=== PATIENT | female | born 1990 | race American Indian/Alaskan Native ===

== ENCOUNTER 2017-09-13 13:33 | Emergency (ER) | payer MEDICAID, OTHER ==
[2017-09-13 14:00] VITALS: BP 100/53
[2017-09-13 14:33] LABS: Basophils % (Auto) 0.4 % (0.0-1.8); Eosinophils % (Auto) 0.1 % (0.0-4.3); Hematocrit 32.1 % (30.3-42.9); Hemoglobin 10.6 gm/dl (10.1-14.3); Mean Corpuscular HGB Conc 33 % (30-34); Mean Corpuscular Hemoglobin 27 pg (28-32); Mean Corpuscular Volume 82 fl (79-97); Platelet Count 225 K/mm3 (140-440); Red Blood Count 3.93 M/mm3 (3.65-5.03); Red Cell Distribution Width 19.1 % (13.2-15.2); White Blood Count 8.1 K/mm3 (4.5-11.0)
[2017-09-13 14:38] LABS: Anion Gap 16 mmol/L; BUN/Creatinine Ratio 17; Blood Urea Nitrogen 5 mg/dL (7-17); Calcium 8.7 mg/dL (8.4-10.2); Carbon Dioxide 24 mmol/L (22-30); Chloride 98.8 mmol/L (98-107); Glucose 85 mg/dL (65-100); Potassium 3.6 mmol/L (3.6-5.0); Sodium 135 mmol/L (137-145)
== END 2017-09-13 22:20 | disposition left against medical advice (07) ==
LOC: ED 13:33
DX: R11.2 Nausea with vomiting, unspecified (principal); Z53.21 Procedure and treatment not carried out due to patient leaving prior to being seen by health care provider
CPT/HCPCS: 36415; 80048; 84702; 85025

== ENCOUNTER 2018-01-14 05:29 | Outpatient (CLI) | payer MEDICAID ==
[2018-01-14 05:47] VITALS: BP 100/59
[2018-01-14] MEDS ORDERED: NORMOSOL-R PH 7.4 1,000 ML IV SCH (06:05)
[2018-01-14] MEDS ORDERED: BRETHINE SUB-Q ONE (06:08)
[2018-01-14] MEDS ORDERED: BRETHINE ONE (06:13)
== END 2018-01-14 07:15 | disposition home or self-care (01) ==
LOC: TRG 05:29
PROVIDERS: ATTEND Obstetrics & Gynecology
DX: O26.892 Other specified pregnancy related conditions, second trimester (principal); R10.9 Unspecified abdominal pain; Z3A.27 27 weeks gestation of pregnancy
CPT/HCPCS: 59025; 96360; 96372; J3105

== ENCOUNTER 2018-01-20 15:29 | Outpatient (CLI) | payer MEDICAID | END 2018-01-20 15:30 | disposition home or self-care (01) | LOC: LAB 15:29 | PROVIDERS: ATTEND Midwife | DX: O36.0130 Maternal care for anti-D [Rh] antibodies, third trimester, not applicable or unspecified (principal); Z3A.28 28 weeks gestation of pregnancy | CPT/HCPCS: 86850; 86900; 86901; J2790 ==

== ENCOUNTER 2018-01-20 17:02 | Outpatient (CLI) | payer MEDICAID ==
[2018-01-20] MEDS ORDERED: LACTATED RINGERS 500 ML IV ONE (18:06)
== END 2018-01-20 18:09 | disposition home or self-care (01) ==
LOC: TRG 17:02
PROVIDERS: ATTEND Obstetrics & Gynecology
DX: O36.0130 Maternal care for anti-D [Rh] antibodies, third trimester, not applicable or unspecified (principal); Z3A.28 28 weeks gestation of pregnancy
CPT/HCPCS: 96372

== ENCOUNTER 2018-02-07 19:49 | Outpatient (CLI) | payer MEDICAID ==
[2018-02-07 20:53] VITALS: BP 114/57
[2018-02-07] MEDS ORDERED: LACTATED RINGERS 1,000 ML ONE (21:33)
[2018-02-07] MEDS ORDERED: TYLENOL PO ONE (22:03)
[2018-02-07 23:06] LABS: Hematocrit 24.6 % (30.3-42.9); Mean Corpuscular HGB Conc 32 % (30-34); Mean Corpuscular Hemoglobin 26 pg (28-32); Mean Corpuscular Volume 81 fl (79-97); Platelet Count 201 K/mm3 (140-440); Red Blood Count 3.06 M/mm3 (3.65-5.03); Red Cell Distribution Width 15.1 % (13.2-15.2)
[2018-02-08] MEDS ORDERED: BRETHINE SUB-Q ONE (00:24)
[2018-02-08] MEDS ORDERED: LACTATED RINGERS 500 ML IV ONE (03:09)
== END 2018-02-08 01:30 | disposition home or self-care (01) ==
LOC: TRG 19:49
PROVIDERS: ATTEND Obstetrics & Gynecology
DX: O26.893 Other specified pregnancy related conditions, third trimester (principal); R52 Pain, unspecified; Z3A.31 31 weeks gestation of pregnancy
CPT/HCPCS: 36415; 59025; 85027; 87116; 87400; 87430; 96360; J3105; J7120

== ENCOUNTER 2022-03-23 02:59 | Emergency (ER) | payer MEDICAID, OTHER ==
[2022-03-23] MEDS ORDERED: ACETAMINOPHEN 325 MG/10.15 ML ORAL LIQD UNIT DOSE PO ONE (03:58)
[2022-03-23] MEDS ORDERED: IBUPROFEN ORAL LIQD 100 MG/5 ML ORAL.LIQD PO ONE (03:58)
[2022-03-23] MEDS ORDERED: prednisoLONE SOD PHOSPHATE 15 MG/5 ML ORAL LIQD PO ONE (03:59)
[2022-03-23] MEDS ORDERED: IPRATROPIUM/ALBUTEROL SULFATE 3 ML AMPUL.NEB IH ONE (03:59)
--- NOTE | 2022-03-23 04:13 | Emergency Department Report ---
ED General Adult HPI - General Chief complaint: Pain General Stated complaint: WEAK/COLD & HOT/ACHES Source: patient Mode of arrival: Ambulatory Limitations: No Limitations - History of Present Illness Initial comments: Patient is a 32-year-old -Tongan female with no past medical history presents to the ED with complaint of acute onset persistent nasal and sinus congestion, frontal sinus pressure, sore throat, diffuse body aches and pains, persistent dry cough with wheezing and shortness of breath with lack of appetite for for 2 days. Patient states that her children have had similar symptoms in the last 1 week. Patient denies dizziness, syncope, chest pain, nausea and vomiting, diarrhea, abdominal pain, change in vision, hearing loss, hemoptysis or back pain MD Complaint: Nasal and sinus congestion, cough, headache, diffuse body aches -: Sudden, days(s) (2) Location: head, chest Radiation: non-radiation Severity scale (0 -10): 7 Quality: aching, sharp Consistency: constant Improves with: none Worsens with: none Associated Symptoms: denies other symptoms, cough, fever/chills, headaches, loss of appetite, malaise. denies: confusion, chest pain, diaphoresis, nausea/vomiting, rash, seizure, shortness of breath, syncope, weakness, other Treatments Prior to Arrival: none - Related Data Home Medications Medication Instructions Recorded Confirmed Last Taken Vit-Fe Fumar-FA [ 1 tab PO QDAY 10/28/15 03/18/18 03/18/18 Vitamin] Ferrous Sulfate [Feosol 325 MG tab] 325 mg PO TID 03/18/18 03/18/18 03/18/18 Previous Rx's Medication Instructions Recorded Last Taken Type Ferrous Sulfate [Feosol 325 MG tab] 325 mg PO BID #60 tablet 03/21/18 Unknown Rx HYDROcodone/APAP 5-325 [[place] 1 each PO Q6HR PRN #20 tablet 03/21/18 Unknown Rx 5/325] Ibuprofen [Motrin] 800 mg PO Q8HR PRN #30 tablet 03/21/18 Unknown Rx Azithromycin [Zithromax Z-LION] 250 mg PO DAILY #6 tab 03/23/22 Unknown Rx Benzonatate [Tessalon Perles] 100 mg PO Q8HR #30 cap 03/23/22 Unknown Rx Cetirizine HCl [Zyrtec 10mg tab] 10 mg PO DAILY #30 tab 03/23/22 Unknown Rx Ibuprofen [Motrin] 600 mg PO Q8H PRN #30 tablet 03/23/22 Unknown Rx methylPREDNISolone [Medrol 4MG 4 mg PO DAILY #21 tab 03/23/22 Unknown Rx DOSEPAK (21 tabs)] Allergies Allergy/AdvReac Type Severity Reaction Status Date / Time No Known Allergies Allergy Verified 10/28/15 16:45 ED Review of Systems ROS: Stated complaint: WEAK/COLD & HOT/ACHES Other details as noted in HPI Constitutional: chills, fever, malaise, weakness Eyes: denies: eye pain, eye discharge, vision change ENT: throat pain, congestion. denies: ear pain Respiratory: cough, shortness of breath, wheezing Cardiovascular: denies: chest pain, palpitations Endocrine: no symptoms reported Gastrointestinal: denies: abdominal pain, nausea, vomiting, diarrhea Genitourinary: denies: urgency, dysuria, discharge Musculoskeletal: arthralgia, myalgia. denies: back pain, joint swelling Skin: denies: rash, lesions Neurological: headache. denies: weakness, paresthesias Psychiatric: denies: anxiety, depression Hematological/Lymphatic: denies: easy bleeding, easy bruising ED Past Medical Hx - Past Medical History Hx Hypertension: No Hx Congestive Heart Failure: No Hx Diabetes: No Hx Deep Vein Thrombosis: No Hx Renal Disease: No Hx Sickle Cell Disease: No Hx Seizures: No Hx Asthma: No Hx COPD: No Hx HIV: No - Social History Smoking Status: Never Smoker - Medications Home Medications: Home Medications Medication Instructions Recorded Confirmed Last Taken Type Vit-Fe Fumar-FA [ 1 tab PO QDAY 10/28/15 03/18/18 03/18/18 History Vitamin] Ferrous Sulfate [Feosol 325 MG tab] 325 mg PO TID 03/18/18 03/18/18 03/18/18 History Ferrous Sulfate [Feosol 325 MG tab] 325 mg PO BID #60 tablet 03/21/18 Unknown Rx HYDROcodone/APAP 5-325 [[place] 1 each PO Q6HR PRN #20 tablet 03/21/18 Unknown Rx 5/325] Ibuprofen [Motrin] 800 mg PO Q8HR PRN #30 tablet 03/21/18 Unknown Rx Azithromycin [Zithromax Z-LION] 250 mg PO DAILY #6 tab 03/23/22 Unknown Rx Benzonatate [Tessalon Perles] 100 mg PO Q8HR #30 cap 03/23/22 Unknown Rx Cetirizine HCl [Zyrtec 10mg tab] 10 mg PO DAILY #30 tab 03/23/22 Unknown Rx Ibuprofen [Motrin] 600 mg PO Q8H PRN #30 tablet 03/23/22 Unknown Rx methylPREDNISolone [Medrol 4MG 4 mg PO DAILY #21 tab 03/23/22 Unknown Rx DOSEPAK (21 tabs)] ED Physical Exam - General Limitations: No Limitations General appearance: alert, in no apparent distress - Head Head exam: Present: atraumatic, normocephalic, normal inspection - Eye Eye exam: Present: normal appearance, PERRL, EOMI Pupils: Present: normal accommodation - ENT ENT exam: Present: mucous membranes moist, TM's normal bilaterally, normal external ear exam, other (Grossly congested nasal passages; mild erythematous oropharynx; palpable frontal sinus tenderness) - Neck Neck exam: Present: normal inspection, full ROM. Absent: tenderness, lymphadenopathy - Respiratory Respiratory exam: Present: wheezes (Mildly diffuse coarse wheezes throughout). Absent: normal lung sounds bilaterally, respiratory distress, rales, rhonchi, chest wall tenderness, accessory muscle use, decreased breath sounds, prolonged expiratory - Cardiovascular Cardiovascular Exam: Present: regular rate, normal rhythm, normal heart sounds. Absent: systolic murmur, diastolic murmur, rubs, gallop - GI/Abdominal GI/Abdominal exam: Present: soft, normal bowel sounds. Absent: tenderness, g uarding, rebound, hyperactive bowel sounds, hypoactive bowel sounds, organomegaly - Extremities Exam Extremities exam: Present: normal inspection, full ROM, normal capillary refill. Absent: tenderness, pedal edema, joint swelling, calf tenderness - Back Exam Back exam: Present: normal inspection, full ROM. Absent: tenderness, CVA tenderness (R), CVA tenderness (L), muscle spasm, paraspinal tenderness, vertebral tenderness - Neurological Exam Neurological exam: Present: alert, oriented X3, CN II-XII intact, normal gait, reflexes normal - Psychiatric Psychiatric exam: Present: normal affect, normal mood - Skin Skin exam: Present: warm, dry, intact, normal color. Absent: rash ED Course Vital Signs 03/23/22 03/23/22 03:05 04:29 Temperature 99.3 F Pulse Rate 99 H Respiratory 18 16 Rate Blood Pressure 111/65 O2 Sat by Pulse 98 Oximetry ED Medical Decision Making - Radiology Data Radiology results: report reviewed, image reviewed Chest x-ray showed no acute cardiopulmonary abnormalities or pneumonitis. - Medical Decision Making This is a 32-year-old -Tongan female with no past medical history presents to the ED with complaint of acute onset persistent nasal and sinus congestion, frontal sinus pressure, sore throat, diffuse body aches and pains, persistent dry cough with wheezing and shortness of breath with lack of appetite for for 2 days. Patient states that her children have had similar symptoms in the last 1 week. In the ED, patient is alert and oriented x3 and is not in any distress. Patient was treated for pain in the ED. Patient was treated in the ED with DuoNeb and Solu-Medrol in the ED. Chest x-ray showed no acute cardiopulmonary abnormalities or pneumonitis. Urinalysis is unremarkable. Patient declined rapid influenza or strep test in the ED. On reevaluation, patient felt better, patient will discharge home on medications and advised to follow-up with her primary care physician in 5 to 7 days for reevaluation or return to the ED immediately if symptoms get worse. - Differential Diagnosis URI; sinusitis; bronchitis; pneumonia; strep pharyngitis; influenza Critical care attestation.: If time is entered above; I have spent that time in minutes in the direct care of this critically ill patient, excluding procedure time. ED Disposition Clinical Impression: Acute upper respiratory infection Acute bronchitis Qualifiers: Bronchitis organism: other organism Qualified Code(s): J20.8 - Acute bronchitis due to other specified organisms Disposition: 01 HOME / SELF CARE / HOMELESS Is pt being admited?: No Does the pt Need Aspirin: No Condition: Stable Instructions: Cough, Adult, [id number], Acute Bronchitis, Adult, [id number], Upper Respiratory Infection, Adult, [id number], Acute Bronchitis (ED) Additional Instructions: Chest x-ray showed no acute cardiopulmonary abnormalities or pneumonitis. Urinalysis is unremarkable. Therefore take medications with food, drink plenty of fluids, follow-up with your primary care physician in 5 to 7 days for reevaluation or return to the ED immediately if symptoms get worse. Prescriptions: methylPREDNISolone [Medrol 4MG DOSEPAK (21 tabs)] 4 mg PO DAILY #21 tab Ibuprofen [Motrin] 600 mg PO Q8H PRN #30 tablet PRN Reason: Pain Benzonatate [Tessalon Perles] 100 mg PO Q8HR #30 cap Azithromycin [Zithromax Z-LION] 250 mg PO DAILY #6 tab Cetirizine HCl [Zyrtec 10mg tab] 10 mg PO DAILY #30 tab Referrals: [facility] [Provider Group] - 3-5 Days Forms: Work/School Release Form(ED) Time of Disposition: 05:54 Print Language: ETHIOPIAN
[2022-03-23 05:26] LABS: HCG Qualitative,Urine Negative (Negative)
[2022-03-23 05:27] LABS: Bilirubin,Urine NEG (Negative); Blood,Urine NEG (Negative); Color,Urine Yellow (Yellow); Mucus,Urine 3+ /HPF; Protein,Urine <15 mg/dL mg/dL (Negative)
--- NOTE | 2022-03-23 05:51 | XRay Report ---
CHEST 2 VIEWS INDICATION / CLINICAL INFORMATION: COUGH STUDY TIME: 05 COMPARISON: None available. FINDINGS: SUPPORT DEVICES: None. HEART / MEDIASTINUM: No significant abnormality. LUNGS / PLEURA: No significant acute pulmonary or pleural abnormality. No pneumothorax. ADDITIONAL FINDINGS: No significant additional findings. Signer Name: Lc Day MD Signed: 03/23/2022 5:46 AM Workstation Name: [id number]
[2022-03-23 06:47] VITALS: BP 110/63
== END 2022-03-23 06:55 | disposition home or self-care (01) ==
LOC: ED 02:59
DX: J06.9 Acute upper respiratory infection, unspecified (principal); J20.9 Acute bronchitis, unspecified
CPT/HCPCS: 71046; 81001; 81025; 94640; 99284; J7510

== ENCOUNTER 2022-05-22 06:17 | Emergency (ER) | payer OTHER ==
[2022-05-22 07:28] VITALS: BP 97/53
--- NOTE | 2022-05-22 07:33 | Emergency Department Report ---
ED Female HPI - General Chief complaint: Abdominal Pain Stated complaint: /ABD PAIN/VAGINAL ODOR/BACK PAIN Time Seen by Provider: 05/22/22 07:29 Source: patient Mode of arrival: Ambulatory Limitations: No Limitations - History of Present Illness Initial comments: 32 yo with pos home preg test in March. Can not get appointment with OBGYN co abd pain and discharge mild off and on bleeding ambulatory to ER [facility] Complaint: vaginal discharge -: Gradual Consistency: intermittent Are you Now?: Yes - Related Data Sexually active: Yes Home Medications Medication Instructions Recorded Confirmed Last Taken Vit-Fe Fumar-FA [ 1 tab PO QDAY 10/28/15 03/18/18 03/18/18 Vitamin] Ferrous Sulfate [Feosol 325 MG tab] 325 mg PO TID 03/18/18 03/18/18 03/18/18 Previous Rx's Medication Instructions Recorded Last Taken Type Ferrous Sulfate [Feosol 325 MG tab] 325 mg PO BID #60 tablet 03/21/18 Unknown Rx HYDROcodone/APAP 5-325 [[place] 1 each PO Q6HR PRN #20 tablet 03/21/18 Unknown Rx 5/325] Ibuprofen [Motrin] 800 mg PO Q8HR PRN #30 tablet 03/21/18 Unknown Rx Azithromycin [Zithromax Z-LION] 250 mg PO DAILY #6 tab 03/23/22 Unknown Rx Benzonatate [Tessalon Perles] 100 mg PO Q8HR #30 cap 03/23/22 Unknown Rx Cetirizine HCl [Zyrtec 10mg tab] 10 mg PO DAILY #30 tab 03/23/22 Unknown Rx Ibuprofen [Motrin] 600 mg PO Q8H PRN #30 tablet 03/23/22 Unknown Rx methylPREDNISolone [Medrol 4MG 4 mg PO DAILY #21 tab 03/23/22 Unknown Rx DOSEPAK (21 tabs)] Allergies Allergy/AdvReac Type Severity Reaction Status Date / Time No Known Allergies Allergy Verified 10/28/15 16:45 ED Review of Systems ROS: Stated complaint: /ABD PAIN/VAGINAL ODOR/BACK PAIN Other details as noted in HPI Comment: All other systems reviewed and negative ED Past Medical Hx - Past Medical History Previous Medical History?: No Hx Hypertension: No Hx Congestive Heart Failure: No Hx Diabetes: No Hx Deep Vein Thrombosis: No Hx Renal Disease: No Hx Sickle Cell Disease: No Hx Seizures: No Hx Asthma: No Hx COPD: No Hx HIV: No - Surgical History Past Surgical History?: No - Family History Family history: no significant - Social History Smoking Status: Never Smoker Substance Use Type: Alcohol - Medications Home Medications: Home Medications Medication Instructions Recorded Confirmed Last Taken Type Vit-Fe Fumar-FA [ 1 tab PO QDAY 10/28/15 03/18/18 03/18/18 History Vitamin] Ferrous Sulfate [Feosol 325 MG tab] 325 mg PO TID 03/18/18 03/18/18 03/18/18 History Ferrous Sulfate [Feosol 325 MG tab] 325 mg PO BID #60 tablet 03/21/18 Unknown Rx HYDROcodone/APAP 5-325 [[place] 1 each PO Q6HR PRN #20 tablet 03/21/18 Unknown Rx 5/325] Ibuprofen [Motrin] 800 mg PO Q8HR PRN #30 tablet 03/21/18 Unknown Rx Azithromycin [Zithromax Z-LION] 250 mg PO DAILY #6 tab 03/23/22 Unknown Rx Benzonatate [Tessalon Perles] 100 mg PO Q8HR #30 cap 03/23/22 Unknown Rx Cetirizine HCl [Zyrtec 10mg tab] 10 mg PO DAILY #30 tab 03/23/22 Unknown Rx Ibuprofen [Motrin] 600 mg PO Q8H PRN #30 tablet 03/23/22 Unknown Rx methylPREDNISolone [Medrol 4MG 4 mg PO DAILY #21 tab 03/23/22 Unknown Rx DOSEPAK (21 tabs)] ED Physical Exam - General Limitations: No Limitations General appearance: alert, in no apparent distress - Head Head exam: Present: atraumatic, normocephalic - Eye Eye exam: Present: normal appearance - ENT ENT exam: Present: mucous membranes moist - Neck Neck exam: Present: normal inspection - Respiratory Respiratory exam: Present: normal lung sounds bilaterally. Absent: respiratory distress - Cardiovascular Cardiovascular Exam: Present: regular rate, normal rhythm. Absent: systolic murmur, diastolic murmur, rubs, gallop - GI/Abdominal GI/Abdominal exam: Present: soft, normal bowel sounds - Extremities Exam Extremities exam: Present: normal inspection - Back Exam Back exam: Present: normal inspection - Neurological Exam Neurological exam: Present: alert, oriented X3 - Psychiatric Psychiatric exam: Present: normal affect, normal mood - Skin Skin exam: Present: warm, dry, intact, normal color. Absent: rash ED Course Vital Signs 05/22/22 05/22/22 07:22 07:28 Temperature 98.4 F Pulse Rate 71 Respiratory 18 Rate Blood Pressure 113/33 Blood Pressure 97/53 [Right] O2 Sat by Pulse 100 Oximetry ED Medical Decision Making - Lab Data Result diagrams: 05/22/22 07:44 05/22/22 07:44 - Medical Decision Making Vital Signs 05/22/22 05/22/22 07:22 07:28 Temperature 98.4 F Pulse Rate 71 Respiratory 18 Rate Blood Pressure 113/33 Blood Pressure 97/53 [Right] O2 Sat by Pulse 100 Oximetry Labs 05/22/22 05/22/22 05/22/22 07:44 07:44 07:44 WBC 4.7 RBC 3.83 Hgb 11.0 Hct 33.0 MCV 86 MCH 29 MCHC 33 RDW 16.6 H Plt Count 254 Lymph % (Auto) 38.4 H [place] % (Auto) 7.4 H Eos % (Auto) 0.9 Baso % (Auto) 0.7 Lymph # (Auto) 1.8 [place] # (Auto) 0.3 Eos # (Auto) 0.0 Baso # (Auto) 0.0 Seg Neutrophils % 52.6 Seg Neutrophils # 2.5 Sodium 139 Potassium 3.8 Chloride 105.4 Carbon Dioxide 24 Anion Gap 13 BUN 5 L Creatinine 0.5 L Estimated GFR > 60 BUN/Creatinine Ratio 10 Glucose 83 Calcium 9.1 Lipase 13 HCG, Qual Positive Urine Color Urine Turbidity Urine pH Ur Specific [place] Urine Protein Urine Glucose (UA) Urine Ketones Urine Blood Urine Nitrite Ur Reducing Substances Urine Bilirubin Urine Ictotest Urine Urobilinogen Ur Leukocyte Esterase Urine WBC (Auto) Urine RBC (Auto) U Epithel Cells (Auto) Urine Mucus Blood Type Antibody Screen Ord Rhogam Gestat Weeks 05/22/22 05/22/22 07:44 08:23 WBC RBC Hgb Hct MCV MCH MCHC RDW Plt Count Lymph % (Auto) [place] % (Auto) Eos % (Auto) Baso % (Auto) Lymph # (Auto) [place] # (Auto) Eos # (Auto) Baso # (Auto) Seg Neutrophils % Seg Neutrophils # Sodium Potassium Chloride Carbon Dioxide Anion Gap BUN Creatinine Estimated GFR BUN/Creatinine Ratio Glucose Calcium Lipase HCG, Qual Urine Color Straw Urine Turbidity Clear Urine pH 6.5 Ur Specific [place] 1.020 Urine Protein <30 mg dl Urine Glucose (UA) Negative Urine Ketones Negative Urine Blood Negative Urine Nitrite Negative Ur Reducing Substances Not Reportable Urine Bilirubin Negative Urine Ictotest Not Reportable Urine Urobilinogen < 2.0 Ur Leukocyte Esterase Trace Urine WBC (Auto) 6.0 Urine RBC (Auto) 13.0 U Epithel Cells (Auto) 13.0 Urine Mucus 3+ Blood Type A NEGATIVE Antibody Screen Negative Ord Rhogam Gestat Weeks <11 pt left before getting results Critical care attestation.: If time is entered above; I have spent that time in minutes in the direct care of this critically ill patient, excluding procedure time. ED Disposition Clinical Impression: Vaginal bleeding during Disposition: 07 LEFT AWOL/ELOPED Is pt being admited?: No Does the pt Need Aspirin: No Condition: Stable Instructions: Abdominal Pain (ED) Time of Disposition: 12:00
[2022-05-22 08:49] LABS: Mucus,Urine 3+ /HPF
[2022-05-22 08:53] LABS: Bilirubin,Urine Negative (Negative); Blood,Urine Negative (Negative); Color,Urine Straw (Yellow); PH,Urine 6.5 (5.0-7.0); Protein,Urine <30 mg dL mg/dL (Negative); Urobilinogen,Urine < 2.0 mg/dL (<2.0)
[2022-05-22 08:54] LABS: Basophils % (Auto) 0.7 % (0.0-1.8); Eosinophils % (Auto) 0.9 % (0.0-4.3); Lymphocytes # (Auto) 1.8 K/mm3 (1.2-5.4); Lymphocytes % (Auto) 38.4 % (13.4-35.0); Mean Corpuscular HGB Conc 33 % (30-34); Mean Corpuscular Volume 86 fl (79-97); Monocytes # (Auto) 0.3 K/mm3 (0.0-0.8); Monocytes % (Auto) 7.4 % (0.0-7.3); Platelet Count 254 K/mm3 (140-440); Red Blood Count 3.83 M/mm3 (3.65-5.03); Red Cell Distribution Width 16.6 % (13.2-15.2)
[2022-05-22 09:18] LABS: Blood Urea Nitrogen 5 mg/dL (7-17); Calcium 9.1 mg/dL (8.4-10.2); Hemolysis Index 4
[2022-05-22 09:27] LABS: BUN/Creatinine Ratio 10
== END 2022-05-22 11:21 | disposition left against medical advice (07) ==
LOC: ED 06:17
DX: O46.91 Antepartum hemorrhage, unspecified, first trimester (principal); Z3A.01 Less than 8 weeks gestation of pregnancy; F10.20 Alcohol dependence, uncomplicated
CPT/HCPCS: 36415; 80048; 81001; 83690; 84703; 85025; 86850; 86900; 86901; 99283